=== PATIENT | female | born 1990 | race Caucasian/White ===

== ENCOUNTER → 2017-12-20 | Emergency (ER) | END | disposition home or self-care (01) ==

== ENCOUNTER 2018-12-10 19:12 | Emergency (ER) | payer MEDICAID ==
[~2018-12-10] VITALS: Ht 147.3 cm; Wt 60.4 kg
[~2018-12-10 19:12] MED LIST: ALPR0.5T PO; HYDR-3498 PO; IBUP-1542 PO; PHEN-538 PO; TAMS-14 PO; TRAM50TA2 PO
[2018-12-10 19:20] VITALS: Ht 147.3 cm; Wt 60.4 kg
[2018-12-10 19:43] VITALS: BP 119/89; PULSE 71; RESP 16
== END 2018-12-10 19:47 | disposition home or self-care (01) ==
LOC: E/R 19:12
DX: F41.9 Anxiety disorder, unspecified (principal)
CPT/HCPCS: 99283